=== PATIENT | female | born 1985 | race Caucasian/White ===

== ENCOUNTER 2020-03-09 00:08 | Emergency (ER) | payer MEDICAID, SELFPAY ==
[2020-03-09 00:09] VITALS: BP 117/74; PULSE 115; RESP 18; TEMP 35.5; O2SAT 98; BMI 24.7
--- NOTE | 2020-03-09 00:37 | RAD_ITS ---
STUDY: X-RAY - RIGHT RADIUS AND ULNA REASON FOR EXAM: Female, 34 years old. PUNCHED GLASSES -- LACERATION TO RT FOREARM TECHNIQUE: 2 view(s) of the forearm. COMPARISON: None. FINDINGS: There is tissue defect identified along the volar and ulnar side of the distal forearm with radiopaque near rectangular structure measuring approximately 1.0 x 0.6 cm in maximum dimension suggestive of retained foreign body, presumably representing glass given history. Normal visualized radius. Normal visualized ulna. There is no demonstrated acute fracture. RAD/Forearm 2 Views IMPRESSION: Soft tissue laceration with retained radiopaque foreign body, presumably representing glass as described above. No acute fracture or subluxation. Electronically Signed: Ivon Pugh MD at 0:55 EDT , Service support ,
--- NOTE | 2020-03-09 00:38 | ED.VIS.GEN ---
History of Present Illness Chief Complaint: Laceration Informant: Patient Narrative: She states she suffered a laceration to his right forearm prior to her arrival. Last tetanus was 8 years ago. She stated she punched a glass and it broke which was a window. She denies any glass in it. She cleaned it out really good per patient. She has drank alcohol today. Denies any other complaints. Current severity is mild. No active bleeding. Past Medical History - Allergies and Home Meds Allergies/Adverse Reactions: Allergies No Known Allergies Allergy (Verified 03/09/20 00:09) Primary Care Physician: NOT,DEFINED [NON-STAFF] - Prior records reviewed: Yes Past Medical History: None Surgical History: noncontributory Lives: With Family Smoking Status: Current every day smoker Alcohol: Occasional Drugs: None Review of Systems General: Denies: Chills, Fever, Sweats Eyes: Denies: Visual changes - bilaterally, Diplopia ENT: Denies: Rhinorrhea, Sore throat Cardiovascular: Denies: Chest pain, Palpitations Respiratory: Denies: Dyspnea, Cough, Dyspnea on exertion Gastrointestinal: Denies: Abdominal pain, Nausea, Vomiting, Diarrhea, Melena, Hematochezia Genitourinary: Denies: Dysuria, Hematuria, Frequency Musculoskeletal: Denies: Back pain, Extremity Pain Skin: Reports: Wounds. Denies: Rash Neurological: Denies: Headache, Weakness, Numbness Physical Exam Vital Signs/Narrative: Vital Signs Temp Pulse Resp BP Pulse Ox 03/09/20 00:09 96 F L 115 H 18 117/74 98 General: Well nourished, Well developed, No Acute Distress Head: Normocephalic, Atraumatic Eyes: Perrl, EOMI ENT: Moist mucous membranes, No rhinorrhea Neck: Supple, Nontender Cardiovascular: Regular rate, Regular rhythm, No murmurs Respiratory: No distress, CTA bilaterally, Chest nontender Abdomen: Soft, Nontender, Nondistended, Normal bowel sounds Back: Nontender, Normal Inspection Extremities: Nontender, No edema Skin: Normal color, No rash, - - Medial inner right forearm is a V-shaped laceration full-thickness measuring 5 inches on one segment and 2 inches on the other segment. Neurological: Alert, Oriented x3, Cranial nerves II-XII grossly intact, Normal Strength, Normal Sensation Psychological: Normal affect, Normal Mood Diagnostic/Tx/Re-eval - Medical Decision Making Patient's wound was cleansed with chlorhexidine. A small piece of glass was removed in its entirety. I do not feel there is another piece of glass. X-ray showed this piece of glass. No other foreign body seen on x-ray. Wound was washed with 500 cc of saline after was anesthetized with 4 cc of lidocaine 1% with epinephrine. Closed with 13 simple sutures with good hemostasis. I did find a second laceration on the opposing side of her arm as well. This was washed as well see above with same amount of saline and 1 cc of lidocaine. It was closed with 2 simple sutures. It measures 1 inch.. Wound was cleansed bacitracin applied and patient will follow-up as an outpatient for suture removal ED Disposition - Plan for ED Patient: Disposition: Home or Assisted Living Diagnosis: Laceration, Foreign body in soft tissue Instructions: ED Laceration All Closures, ED Foreign Body Soft Tissue Removed Referrals: Doctor,Your [STAFF PHYSICIAN] - Additional Instructions: Sutures removed in 14 days
[2020-03-09 01:46] VITALS: RESP 14
== END 2020-03-09 01:46 | disposition home or self-care (01) ==
PROVIDERS: Emergency Provider Emergency Medicine
DX: S51.821A Laceration with foreign body of right forearm, initial encounter (principal); X78.0XXA Intentional self-harm by sharp glass, initial encounter
CPT/HCPCS: 12001; 73090; 99283

== ENCOUNTER 2020-04-06 11:57 | Emergency (ER) | payer MEDICAID, SELFPAY ==
[2020-04-06 11:58] VITALS: BP 117/77; PULSE 98; RESP 18; TEMP 36.9; O2SAT 100; BMI 26.2
--- NOTE | 2020-04-06 12:15 | RAD_ITS ---
STUDY: X-RAY - RIGHT KNEE REASON FOR EXAM: Female, 34 years old. KNEE PAIN AFTER JUMPING ON TRAMPOLINE LAST NIGHT -- UNABLE TO STAND TECHNIQUE: 5 view(s) of the knee. COMPARISON: None. FINDINGS: Normal visualized distal femur. Normal visualized proximal tibia and fibula. Normal proximal tibiofibular articulation. There is no demonstrated fracture. Normal medial femorotibial compartment. Normal lateral femorotibial compartment. Normal patellofemoral articulation. There is a soft tissue prominence in the suprapatellar region suggesting a joint effusion. The soft tissue structures are unremarkable. RAD/Knee 4 or More Views IMPRESSION: No fracture. Joint effusion. Electronically Signed: Antonino Larsen MD at 14:25 EDT , Service support ,
--- NOTE | 2020-04-06 12:15 | ED.DCSUM_ITS ---
History of Present Illness Chief Complaint: Lower Extremity Injury Informant: Patient Onset: Yesterday Current Severity: Moderate Maximum Severity: Moderate Narrative: Patient presents secondary to right knee injury. She was jumping on a trampoline yesterday when her foot went down between to the [place] and twisted. She complains of pain to the medial portion of her knee. She was able to get off of the trampoline but after approximately 3 steps her knee buckled on her. She states that this time she is not able to put weight on her leg without her knee buckling. She denies prior problems with her knees. She denies any other injury. Past Medical History - Allergies and Home Meds Allergies/Adverse Reactions: Allergies No Known Allergies Allergy (Verified 04/06/20 12:00) Primary Care Physician: Care Physician,No Primary [Primary Care Provider] - Past Medical History: None Surgical History: noncontributory Lives: With Family Smoking Status: Current every day smoker Review of Systems General: Denies: Chills, Fever Eyes: Denies: Visual changes - bilaterally ENT: Denies: Bilateral ear pain Cardiovascular: Denies: Chest pain Respiratory: Denies: Dyspnea, Cough Gastrointestinal: Denies: Abdominal pain, Nausea, Vomiting Genitourinary: Denies: Dysuria Musculoskeletal: Reports: Swelling, Extremity Pain Skin: Denies: Wounds Neurological: Denies: Headache, Numbness Hematologic: Denies: Easy bruising, Easy bleeding Allergy: Denies: Uticaria Physical Exam Vital Signs/Narrative: Vital Signs Temp Pulse Resp BP Pulse Ox 04/06/20 11:58 98.4 F 98 18 117/77 100 Inital Vital Signs reviewed: Yes General: Well nourished, Well developed Head: Normocephalic ENT: Moist mucous membranes Neck: Supple Cardiovascular: Regular rate, Regular rhythm Respiratory: No distress Abdomen: Soft Extremities: - - Tenderness outpatient in right knee along the joint line, medial greater than lateral. Minimal joint effusion. Is able to straight leg raise her foot off the bed. No tenderness of the patella or patellar tendon. Decreased range of motion secondary to pain. No calf tenderness or edema. Strong distal pulses. Skin: Normal color Neurological: Alert, Oriented x3 Psychological: Normal affect Diagnostic/Tx/Re-eval Right knee x-ray per my read reveals small joint effusion. No evidence of fracture. - Medical Decision Making Patient is given naproxen and a tab of Saragosa for pain. Ice was applied to her knee. X-rays are reviewed with her. Fabrizio wrap will be applied and she will be given crutches. She is to follow-up with orthopedics if not improving in 3 to 5 days. ED Disposition - Plan for ED Patient: Disposition: Home or Assisted Living Diagnosis: Right knee sprain Instructions: ED Sprain Knee Prescriptions: Naproxen [Naprosyn] 500 mg PO BID PRN PRN #20 tab PRN Reason: Pain Score 4-10/10 Transmission Status: Pending to [facility] Hydrocodone Bitart/Apap 5-325 [Saragosa 5MG-325MG] 1 tablet PO Q6H PRN PRN 3 Days #10 tablet PRN Reason: Pain Transmission Status: Sent to [facility] Referrals: Jose F Syed DO [STAFF PHYSICIAN] - 3-5 Days if not improving
[2020-04-06] MEDS: HYDROcodone Bitartrate/Apap 5/325 Tablet PO (12:42)
[2020-04-06] MEDS: Naproxen 500 MG Tablet PO (12:43)
[2020-04-06 14:00] VITALS: BP 109/74; PULSE 76; RESP 16; O2SAT 99
== END 2020-04-06 14:01 | disposition home or self-care (01) ==
PROVIDERS: Emergency Provider Emergency Medicine
DX: S83.91XA Sprain of unspecified site of right knee, initial encounter (principal); F17.200 Nicotine dependence, unspecified, uncomplicated; Y93.44 Activity, trampolining
CPT/HCPCS: 73564; 99284

== ENCOUNTER → 2020-05-21 06:57 | Outpatient (CLI) | payer MEDICAID, SELFPAY ==
[2020-05-15 08:38] VITALS: BMI 26.2
[2020-05-20 13:26] VITALS: BMI 26.2
--- NOTE | 2020-05-21 06:58 | MRI_ITS ---
STUDY: MRI RIGHT KNEE REASON FOR EXAM: Female, 34 years old. Knee injury, knee pain and instability. TECHNIQUE: Standardized fat and water weighted pulse sequences were obtained in all 3 orthogonal planes. COMPARISON: None. FINDINGS: 3 cm red red zone vertical tear of the posterior horn and posterior body of the medial meniscus extending to the superior and inferior surfaces. Normal hyaline cartilage of the medial femorotibial compartment. 5 x 10 mm minimally depressed osteochondral fracture of the posterior medial tibial plateau with surrounding severe contusion. There is a partial sprain of the MCL with interstitial and periligamentous edema. Normal distal semimembranosus, gracilis and semitendinosus tendons. Normal lateral meniscus. Normal hyaline cartilage of the lateral femorotibial compartment. Recent pivot shift injury with mild contusions of the anterolateral femoral condyle near the terminal sulcus in the posterior lateral tibial plateau. Normal proximal tibiofibular articulation. Normal lateral collateral (fibular) ligament. Normal popliteus tendon. Normal biceps femoris tendon. Anterior cruciate ligament transection (ACL tear). Normal posterior cruciate ligament (PCL). Normal congruent patellofemoral articulation. Normal hyaline cartilage of the patellofemoral compartment. Normal medial and lateral patellar retinaculum. Normal quadriceps tendon. Normal patellar tendon. Normal Hoffa''s fat pad. There is a small volume joint effusion. The soft tissues are unremarkable. The otherwise visualized osseous structures are unremarkable. MRI/Lower Ext Joint Only (Routine) IMPRESSION: Recent pivot shift injury with anterior cruciate ligament transection (ACL tear), mild contusions of the anterior lateral femoral condyle and posterior lateral tibial plateau, grade 1 medial collateral ligament tear/sprain, 3 cm read red zone vertical tear of the posterior horn and posterior body the medial meniscus extending to the superior and inferior surface, and a 5 x 10 mm minimally depressed osteochondral fracture of the posterior medial tibial plateau surrounded by severe contusion. Electronically Signed: Shmuel Escoto MD at 8:12 EDT Tel , Service support ,
== END ==
PROVIDERS: PCP Nurse Practitioner Family; Referring Provider Physician Assistant; Visit Provider Physician Assistant
DX: M23.91 Unspecified internal derangement of right knee (principal)
CPT/HCPCS: 73721

== ENCOUNTER 2020-09-03 10:28 | Day surgery (SDC) | payer MEDICAID, SELFPAY ==
[2020-05-23 13:43] VITALS: BMI 26.2
[2020-07-01 14:41] VITALS: BMI 26.2
[2020-09-03] VITALS (7 sets, daily range): BP systolic 88–107; BP diastolic 61–73; PULSE 80–87; RESP 14–16; TEMP 36.3–36.9; O2SAT 96–99; BMI 26.6
--- NOTE | 2020-09-03 06:00 | HP_ITS ---
I have re-examined the patient. There are no clinical changes since date of exam. Intake Intake Visit Reasons: knee Accompanied by: self Is patient in pain?: Yes Allergies No Known Allergies Allergy (Verified 08/27/20 14:43) Medications Naproxen [Naprosyn] 500 mg PO BID PRN PRN #20 tab 04/06/20 [Rx Confirmed 08/28/20] Levothyroxine [Synthroid] 112 mcg PO DAILY 08/27/20 [History Confirmed 08/28/20] Is last menstrual period known: Yes Post menopausal: No Patient : No PFSH Surgical History (Updated 05/15/20 @ 08:38 by Christine Kelley) H/O: (Acute) Social History (Updated 08/28/20 @ 16:[address] Guadalupe Caldera DO) Smoking Status: Current every day smoker tobacco type: cigarettes alcohol intake: current alcohol intake frequency: a few times a week HPI knee: Surgical H&P: Yes Details: Parts of this documentation were recorded by a scribe, this documentation accurately reflects the service provided and the decisions made by me, Dr. Guadalupe Caldera DO 08/28/20 1431. JANNET MARVIN is a 35 year old F here today for F/U on right knee. She is here to resign surgery surgery consent for the right knee scope. Continues to have right knee instability and right medial knee pain. She has been WBAT in a TROM. ROS Skin/Breast Reports skin swelling (Right knee) Ortho Exam Right Knee Skin/Wound: No erythema, No ecchymosis, Yes swelling Homans Sign: No Knee ROM: Yes ROM-Extension -20 to 0, No ROM-Flexion 0-140 Examination: Yes Med jt line tenderness Stability: NML: Posterior Drawer, 1+: Anterior Drawer Apprehension with Lateral Translation: No Assessment & Plan Plan states tsh levels almost normalized and dr omari ball airline stewardess in [place] has cleared patient Reviewed the pre-operative plans with the patient. Risks and benefits of the procedure were fully explained, including but not limited to infection, neurovascular injury, continued pain, arthritis, stiffness, need for further surgery, re-injury, DVT, PE, general risks of anesthesia, and loss of limb or life. The patient understands all the risks and does wish to proceed with written consent. discussed risks of smoking and infection. covid risks again discussed. We discussed the current risk associated COVID-19. While it is understood that there is a community spread of COVID 19 the risk of aroldo COVID-19 while at [facility] is very low, however, the risk cannot be completely mitigated because of the community spread of the disease. We discussed in detail the risk of exposure to and or potential harm posed by the COVID-19 virus with having a surgery/procedure at this time versus the risk of delaying the surgery/procedure. Is not possible to know either the risk of delaying the surgery procedure or chance of getting an infection with perfect accuracy, but a joint decision was made to proceed at this time with a schedule surgery/procedure as indicated on the consent form. Patient was notified that we will need to comply with any screening or testing [facility] wishes to perform or that surgery may be delayed for any positive results. Coding Level of Care Code Off vis,est,level 3
[2020-09-03] MEDS: Lactated Ringers 1,000 ML 100 ML IV (11:14)
--- NOTE | 2020-09-03 12:14 | OP.PCM_ITS ---
Report of Operation Date of Procedure: 09/03/20 Pre-Operative Diagnosis: right knee acl tear, medial meniscus tear Post-Operative Diagnosis: same Surgery/Procedure Performed:: deontek, acl reconstruction with allograft graftlink, med men repair pump house operator: Tio Flor Type of Anesthesia:: Spinal Anesthesiologist: Hayden Sanchez Estimated Blood Loss (mL): min Fluids Replaced: 1000ml lr Description of Procedure: Preop note Patient is a 35-year-old female who sustained a twisting injury to her right knee hyperextension continued pain and instability MRI confirms medial meniscus tear as well as ACL tear. Patient has been is failed conservative treatment as having recurrent instability discussed risk benefits and alternatives surgery. Risk include but not limited to blood loss, blood clot, infection, neurovascular, failure procedure, loss of life and loss of limb. Patient is aware would like proceed with right knee arthroscopy ACL reconstruction with autograft with allograft which was discussed with her preoperatively she prefers to use a donor graft versus of her own tissue, medial meniscus repair versus meniscectomy. Operative note Patient seen and examined preoperative holding area. Right knee was marked. Patient brought to the operating room placed supine the operating table. Signed, anesthesia, antibiotics were machine spring former. Right leg was prepped and draped in usual sterile technique with a tract around her upper thigh. All bony prominences well padded and SCDs placed on her contralateral limb. We marked out our incision for portal placement. The right leg was then elevated exsanguinated and tourniquet was placed to a pressure of 250 torr. Timeout was performed. We began our diagnostic arthroscopy while the graft link allograft was repaired in standard technique on the back table. The patellofemoral joint was unremarkable had grade 2 fibrillated changes in the central aspect. Removed there were no loose bodies in the inferior scar in the medial or lateral recesses. We then moved to the medial joint line we then created anteromedial portal under direct visualization. We probed the posterior horn of the meniscus medial meniscus which was a red red tear right off the capsule. We placed 5 reverse curved fixes FasT-Fix devices across the tear after rasping the area with a rasp and shaver. We then reinserted probe we had stable meniscus repair at that point. The ACL was torn and scarred to the PCL this was gently debrided back. The lateral meniscus was intact and stable probing the lateral femoral condyle lateral tibial plateau were intact. We did perform a very minimal notchplasty. We then use our flip cutter from [employer] for our femoral tunnel in standard technique. We drilled back at 9 to about 25 and placed our suture under again understand her technique. We then irrigated any bony debris. We then moved her tibial side performed and a flip cutter to about 27 on the tibial side and then irrigated any bony debris that we did find. We then brought the graft on the back tunnel brought through the flipped the button on the lateral femoral cortex and then visualize this to ensure that it was completely flipped which was palpated on the lateral femoral cortex through our incision as well. We then brought the graft through the tibial side as well. We then cycled the graft about 20 times brought the graft to the knee into extension to ensure that the graft did not impinge anteriorly which it did not. We then placed a reverse posterior drawer on the right knee and then tightened over a button and then oversewed on top of the button restrict her for 6 a secure fixation on the tibial side. In the mid to the femoral thyroid but did bring the graft all bit further into the femoral side. Which we had a negative Lockman at the end of the case. All incisions were irrigated with copious amounts of sterile saline. Portals were closed with interrupted nylon stitches the tendon the incision for the femoral and tibial tunnels were closed with Vicryl and a running 4 Monocryl. Sterile dressings were applied. Sterile dressings were applied and a brace was applied to the right lower extremity tourniquet was deflated before brace was applied. Patient taught procedure well no complications transferred recovery room in stable condition Postoperative note Toe-touch weightbearing right leg CHAYA stockings and ice elevate ankle pumps Discussed risk of blood clot and infection Follow-up on Tuesday with Donis for bright brace change and adjustment Call with increased pain numbness tingling or other issues arise We will discuss pictures in 2 weeks Dragon disclaimer This note was generated with [facility] [employer] ([employer]) dictation software. It may contain incorrect words, spelling, and punctuation that were not noted in checking the note before signing. Grafts/Implants Used: arthrex graft link
--- NOTE | 2020-09-03 12:14 | PCM.DC.ORTHO ---
Discharge Diet: No Restrictions - Ttwb operative extremity, brace may be unlocked while seated 0 to 30 degrees, brace locked in extension during ambulation and at night, follow-up on Tuesday for dressing change and brace adjustment with Donis Wayt, may get incision wet after that time, call with increased pain numbn Discharge Activity: May Not Drive May shower in (days): 1 Ice area for (Minutes): 20 - Every hour while awake. Weight Bearing Status: Weight bearing as tolerated Keep extremity elevated above heart level: Operative Extremity Call your doctor if your incision/area has: Continuous Slow Oozing, Sudden Increased Bleeding, Increased Pain/ Swelling, Increased Redness, Foul Smelling Discharge Call your doctor if you observe: Fever of 101 or Higher, Coldness, Increased Pain, Numbness or Tingling, Change in Color, Calf discomfort Allergies/Adverse Reactions: Allergies No Known Allergies Allergy (Verified 09/03/20 11:02) Medications to take at Discharge Naproxen [Naprosyn] 500 mg PO BID PRN PRN #20 tab 04/06/20 Levothyroxine [Synthroid] 112 mcg PO DAILY 08/27/20 Acetaminophen [Tylenol Extra Strength] 500 - 1,000 mg PO Q6H PRN PRN 09/03/20 Oxycodone [Oxyir] 5 mg PO Q4H PRN PRN 5 Days #60 tab 09/03/20 The following prescriptions were given: Oxycodone [Oxyir] 5 mg PO Q4H PRN PRN 5 Days #60 tab PRN Reason: Pain Transmission Status: Received by [facility] Primary Care Physician: Rach Page CIVIL ENGINEER'S AIDE, CIVIL ENGINEER'S AIDE-C [Primary Care Provider] - Test Results: Test results from this visit will be discussed in further detail at your follow-up appointment, if applicable. Please Follow Up With: Guadalupe Caldera, DO - [phone]
[2020-09-03] MEDS: Cefazolin 2 GM in 0.9% Normal Saline 100 ML IV (12:15)
[2020-09-03] MEDS: Epinephrine (1 mg/ml) 1 MG/ML VIAL (12:26)
[2020-09-03] MEDS: Mupirocin Ointment 22gm Tube 1 APPLIC (13:51)
== END 2020-09-03 16:10 | disposition home or self-care (01) ==
LOC: SDC 10:28 → AC 10:28
PROVIDERS: Anesthesiology; PCP Nurse Practitioner Family; Referring Provider Orthopaedic Surgery; Visit Provider Orthopaedic Surgery
PROC: (CPT 29882; principal; 2020-09-03 11:55)
DX: S83.511A Sprain of anterior cruciate ligament of right knee, initial encounter (principal); S83.241A Other tear of medial meniscus, current injury, right knee, initial encounter; X50.1XXA Overexertion from prolonged static or awkward postures, initial encounter; Y93.9 Activity, unspecified; Y92.9 Unspecified place or not applicable; Y99.9 Unspecified external cause status; Z20.828 Contact with and (suspected) exposure to other viral communicable diseases; F17.210 Nicotine dependence, cigarettes, uncomplicated; E07.9 Disorder of thyroid, unspecified
CPT/HCPCS: 01400; 29882; 29888; 64447; 36415; 84443; 87635; 94799; C1713; C9803; J7120; U0003

== ENCOUNTER 2020-12-04 10:00 | Outpatient (RCR) | payer MEDICAID, SELFPAY ==
--- NOTE | 2020-09-29 10:19 | HP.PTEVAL_ITS ---
Patient's Visit Information JANNET MARVIN is a 35 year old F referred to Physical Therapy by Dr. Guadalupe Caldera DO with a diagnosis of 09-03-2020 s/p R ACL and Medial meniscal repair. Date of Evaluation: 09/29/20 Physical Therapist: KIARA Mauricio - Visit Plan Frequency: 2-3x /Week Duration: 3 Months Plan: R TTWB. Until Oct 13 0-60 degrees. Oct 13 0-90 degrees. 2-3 X/ week for 12 weeks for R knee AROM per restrictions and protocol, R knee sand hip strengthening, gait training, functional activities, balabce and proprioception with HEP and modalities as needed - Subjective She hurt her knee April 05, 2020 jumping on a trampoline. She went to [facility] the next day and fell down 3 X in 3 weeks and made an appointment with Dr Larios. 09-03-2020 pt had R ALC and medial meniscal repar. She is TTWB with her brace locked into extension and sitting it is unlocked to 60 degrees flexion. She saw the last week and she changed the 30 degrees to 60 degrees. She has no stairs at home. She is not driving. She is doing no exercises... but walks and does all the house work. She started doing some SLR but says that it hurts. She is sleeping ok with the brace on. Her first 2 days of pain after surgery were the worst. - Pain R knee pain Pain Intensity (Out of 10): 0 Pain Intensity Range: 6 - Objective Gait: walks 2 crutches with toe touch weightbearing on the R LE. R knee AROM: 0 degrees to 60 degrees R knee flexion. R knee girth: tib tub 34.1, 37, 40.5. SLR R Able to do one SLR and the AA for the next 9 in a row. S/L hip abd R able to do AA 2 X 10. Some visable contraction with QS. - Goals Goal 1:: I HEP Goal Time Frame: 4-6 Weeks Goal 2:: Increase R knee AROM to full ROM ( 0-60 until 10-13-2020) and then (0- 90 till 10-27-2020) Goal Time Frame: 4-6 Weeks Goal 3:: Be able to walk with no antalgic gait with no AD (TTWB until return to Dr in Oct) Goal Time Frame: 6-8 Weeks Goal 4:: Be able to go up and down the stairs recip with no hand rails and no substitution Goal Time Frame: 6-8 Weeks Goal 5:: Increase R knee strength to 4/5 flexion and extension at DC Goal Time Frame: 8-12 Weeks Goal 6:: Be able to single leg stance on the R for 30 senconds without any LOB or signs of instability Goal Time Frame: 8-12 Weeks - Rehabilitation Potential Rehabilitation Potential: Good - Anticipated Interventions Patient/Client Instruction: Educate patient on: Condition, Plan of Care For the Purpose of:: To decrease pain, To decrease swelling/inflammation, To increase ROM, To improve nutrient delivery to tissue, To improve muscle performance and motor function, To improve ability to perform ADL's, To increase tolerance to activity/condition/position, To improve performance and independence with ADL's, To decrease level of supervision to perform tasks, To improve ability of physical actions for home/community/work/leisure, To improve gait and locomotor functions, To improve health of tissue, To decrease soft tissue restriction, To increase flexibility/ROM, To improve endurance, To improve balance, To improve safety with gait Therapeutic Exercise to Include: Strength training, Endurance training, Balance training, Flexibilty training, Gait and locomotor training, Neuromotor development, Passive ROM, Active ROM For the Purpose of:: To decrease pain, To decrease swelling/inflammation, To increase ROM, To improve nutrient delivery to tissue, To increase oxygenation perfusion, To improve muscle performance and motor function, To improve ability to perform ADL's, To increase tolerance to activity/condition/position, To improve performance and independence with ADL's, To decrease level of supervision to perform tasks, To improve ability of physical actions for home/community/work/leisure, To improve gait and locomotor functions, To improve health of tissue, To decrease soft tissue restriction, To increase flexibility/ROM, To improve balance Functional Training to Include: Gait training For the Purpose of:: To improve gait and locomotor functions, To improve safety with gait IF ES: Yes Cryotherapy (ice pack, ice massage): Yes For the Purpose of:: To decrease pain, To decrease swelling/inflammation, To increase ROM, To improve nutrient delivery to tissue Thank you for the opportunity to evaluate your patient. For Medicare and Medicare HMO plans, please review the plan of care and approve it. It will need to be FAXED BACK to us at [phone] for Medicare purposes. For Medicare only, by signing this I certify the plan of care. Please let me know if there are questions or concerns regarding this plan of care. Physician Signature: Date:
--- NOTE | 2020-10-21 10:18 | HP.PTREVAL_ITS ---
Dr. Guadalupe Caldera, DO, It has been my pleasure to treat JANNET MARVIN over the last 5 visits for 09-03-2020 s/p R ACL and Medial meniscal repair. Please see the progress note below for an update on the physical therapy plan of care! Subjective: Pt ready to move on... pt is afraid of going without her brace.... she is afraid that her leg will buckle like before surgery. Objective/Function: R knee AROM: 0-90 degrees. Gait: walks with increased stance time on the L... improved though. Plan Plan: standing knee flexion (kick butts ), MAY ADD: wall slides, HS stretches, Leg press to 90 degrees, Hip add/abd machine, HS curls. 0-90 degrees till 10-27 and then full. 2-3 X/ week for 12 weeks for R knee AROM per restrictions and protocol, R knee sand hip strengthening, gait training, functional activities, balabce and proprioception with HEP and modalities as needed Goals Goal 1:: I HEP Goal Time Frame: 4-6 Weeks Goal 2:: Increase R knee AROM to full ROM ( 0-60 until 10-13-2020) and then (0- 90 till 10-27-2020) Goal Time Frame: 4-6 Weeks Goal Progress: Progressing Goal 3:: Be able to walk with no antalgic gait with no AD (TTWB until return to Dr in Oct) Goal Time Frame: 6-8 Weeks Goal Progress: Progressing Goal 4:: Be able to go up and down the stairs recip with no hand rails and no substitution Goal Time Frame: 6-8 Weeks Goal 5:: Increase R knee strength to 4/5 flexion and extension at DC Goal Time Frame: 8-12 Weeks Goal 6:: Be able to single leg stance on the R for 30 senconds without any LOB or signs of instability Goal Time Frame: 8-12 Weeks Anticipated Interventions Patient/Client Instruction: Educate patient on: Condition, Plan of Care For the Purpose of:: To decrease pain, To decrease swelling/inflammation, To increase ROM, To improve nutrient delivery to tissue, To improve muscle performance and motor function, To improve ability to perform ADL's, To increase tolerance to activity/condition/position, To improve performance and independence with ADL's, To decrease level of supervision to perform tasks, To improve ability of physical actions for home/community/work/leisure, To improve gait and locomotor functions, To improve health of tissue, To decrease soft tissue restriction, To increase flexibility/ROM, To improve endurance, To improve balance, To improve safety with gait Therapeutic Exercise to Include: Strength training, Endurance training, Balance training, Flexibilty training, Gait and locomotor training, Neuromotor development, Passive ROM, Active ROM For the Purpose of:: To decrease pain, To decrease swelling/inflammation, To increase ROM, To improve nutrient delivery to tissue, To increase oxygenation perfusion, To improve muscle performance and motor function, To improve ability to perform ADL's, To increase tolerance to activity/condition/position, To improve performance and independence with ADL's, To decrease level of supervision to perform tasks, To improve ability of physical actions for home/community/work/leisure, To improve gait and locomotor functions, To improve health of tissue, To decrease soft tissue restriction, To increase flexibility/ROM, To improve balance Functional Training to Include: Gait training For the Purpose of:: To improve gait and locomotor functions, To improve safety with gait IF ES: Yes Cryotherapy (ice pack, ice massage): Yes For the Purpose of:: To decrease pain, To decrease swelling/inflammation, To increase ROM, To improve nutrient delivery to tissue Please do not hesitate to contact me at [phone] by phone or if you have questions or concerns regarding this new plan of care! Sincerely, Huong Becerra, MPT
--- NOTE | 2021-01-13 11:17 | HP.PT.NRP ---
JANNET MARVIN was seen in my office for initial evaluation on 09/29/20. The following Plan of Care was established for this patient: Initial Frequency: 2-3x /Week Initial Duration: 3 Months Patient/Client Instruction: Educate patient on: Condition, Plan of Care For the Purpose of:: To decrease pain, To decrease swelling/inflammation, To increase ROM, To improve nutrient delivery to tissue, To improve muscle performance and motor function, To improve ability to perform ADL's, To increase tolerance to activity/condition/position, To improve performance and independence with ADL's, To decrease level of supervision to perform tasks, To improve ability of physical actions for home/community/work/leisure, To improve gait and locomotor functions, To improve health of tissue, To decrease soft tissue restriction, To increase flexibility/ROM, To improve endurance, To improve balance, To improve safety with gait Therapeutic Exercise to Include: Strength training, Endurance training, Balance training, Flexibilty training, Gait and locomotor training, Neuromotor development, Passive ROM, Active ROM For the Purpose of:: To decrease pain, To decrease swelling/inflammation, To increase ROM, To improve nutrient delivery to tissue, To increase oxygenation perfusion, To improve muscle performance and motor function, To improve ability to perform ADL's, To increase tolerance to activity/condition/position, To improve performance and independence with ADL's, To decrease level of supervision to perform tasks, To improve ability of physical actions for home/community/work/leisure, To improve gait and locomotor functions, To improve health of tissue, To decrease soft tissue restriction, To increase flexibility/ROM, To improve balance Functional Training to Include: Gait training For the Purpose of:: To improve gait and locomotor functions, To improve safety with gait IF ES: Yes Cryotherapy (ice pack, ice massage): Yes For the Purpose of:: To decrease pain, To decrease swelling/inflammation, To increase ROM, To improve nutrient delivery to tissue This patient was last seen in our office 12/04/20. Pertinent comments regarding their Physical therapy will appear below: [facility]. Pt called at the end of Nov and cancelled her appointments due to illness and has not rescheduled. She will be discharged at this time. At this point I will be discontinuing this patient from physical therapy. I would be happy to see this patient again in the future if found appropriate by the physician. Thank you! Huong Becerra, MPT
== END 2020-12-04 19:00 | disposition home or self-care (01) ==
LOC: PT 10:00
PROVIDERS: PCP Nurse Practitioner Family; Referring Provider Orthopaedic Surgery; Visit Provider Orthopaedic Surgery
DX: Z47.89 Encounter for other orthopedic aftercare (principal)
CPT/HCPCS: 97014; 97110; 97161; 97530; G0283

== ENCOUNTER → 2022-01-24 00:20 | Outpatient (REF) | payer SELFPAY | END | disposition home or self-care (01) | LOC: EDREF 00:20 | PROVIDERS: PCP Nurse Practitioner Family | DX: Z00.00 Encounter for general adult medical examination without abnormal findings (principal) ==